=== PATIENT | male | born 1945 | race Caucasian/White ===

== ENCOUNTER → 2019-09-11 | Outpatient (CLI) | payer OTHER ==
[~2019-09-11] MED LIST: ALPHAGAN-P 0.2%5 ML INTRAOC; ASPIR-TRIN325 MG PO; CIPRO500 MG PO; FLAGYL500 MG PO; LISINOPRIL/HCTZ1 TA3 PO; SIMVASTATIN40 MG PO
== END | disposition home or self-care (01) ==
LOC: US 13:14
DX: I65.23 Occlusion and stenosis of bilateral carotid arteries (principal)

== ENCOUNTER → 2020-11-28 | Outpatient (CLI) | payer OTHER | END | disposition home or self-care (01) | LOC: US 11-10 11:00 | PROVIDERS: ATTEND Nurse Practitioner Family | DX: I65.23 Occlusion and stenosis of bilateral carotid arteries (principal) ==